=== PATIENT | female | born 1990 | race Hispanic/Latino ===

== ENCOUNTER 2017-11-27 22:04 | Emergency (ER) | payer OTHER, SELFPAY ==
--- NOTE | 2017-11-27 22:33 | EDPHYS ---
Physician Documentation [facility] Name: Jennifer Méndez Age: 27 yrs Sex: Female : 1990 Arrival Date: 11/27/2017 Time: 22:09 Bed 12 Private MD: ED Physician Josiah Fonseca HPI: 11/27 22:28 This 27 yrs old Female presents to ER via Ambulatory with complaints of Sore cp Throat. 22:28 The patient presents with sore throat. Onset: The symptoms/episode began/occurred 3 cp day(s) ago. Associated signs and symptoms: Pertinent negatives cough, dysphagia, fever, flu-like symptoms. PR INTERN: 22:19 LMP N/A - control method ed1 Historical: - Allergies: 22:19 PENICILLINS; ed1 22:19 [place]; ed1 - Home Meds: 22:19 Control [Active]; ed1 - PMHx: 22:19 None; ed1 - PSHx: 22:19 ; ed1 - Immunization history:: Adult Immunizations up to date, Flu vaccine is not up to date. - Social history:: Smoking status: Patient uses tobacco products, smokes one-half pack cigarettes per day. ROS: 22:29 Eyes: Negative for injury, pain, redness, and discharge. cp 22:29 Constitutional: Negative for body aches, chills, fever, poor PO intake. 22:29 ENT: Positive for sore throat, Negative for drainage from ear(s), ear pain, difficulty swallowing, difficulty handling secretions. 22:29 Cardiovascular: Negative for chest pain. 22:29 Respiratory: Negative for cough, shortness of breath, wheezing. 22:29 Abdomen/GI: Negative for abdominal pain, vomiting, diarrhea, constipation. 22:29 Skin: Negative for cellulitis, rash. 22:29 Neuro: Negative for altered mental status, headache, weakness. 22:29 All other systems are negative. Exam: 22:30 Head/Face: Normocephalic, atraumatic. cp 22:30 Constitutional: The patient appears in no acute distress, alert, awake, non-toxic, well developed, well nourished. 22:30 Eyes: Periorbital structures: appear normal, Conjunctiva: normal, no exudate, no injection, Sclera: no appreciated abnormality, Lids and lashes: appear normal, bilaterally. 22:30 ENT: External ear(s): are unremarkable, Ear canal(s): are normal, clear, TM's: dullness, bilaterally, Nose: is normal, Mouth: Lips: moist, Oral mucosa: moist, Posterior pharynx: Airway: no evidence of obstruction, patent, Tonsils: bilaterally enlarged, with erythema, with exudate, Uvula: midline, erythema, that is moderate, Voice: is normal. 22:30 Neck: ROM/movement: is normal, is supple, without pain, no range of motions limitations, no meningismus, no nuchal rigidity, Lymph nodes: lymphadenopathy is appreciated, anterior cervical nodes. 22:30 Chest/axilla: Inspection: normal, Palpation: is normal, no crepitus, no tenderness. 22:30 Cardiovascular: Rate: normal, Rhythm: regular. 22:30 Respiratory: the patient does not display signs of respiratory distress, Respirations: normal, no use of accessory muscles, no retractions, no splinting, no tachypnea, labored breathing, is not present, Breath sounds: are clear throughout, no decreased breath sounds, no stridor, no wheezing. 22:30 Abdomen/GI: Exam negative for discomfort, distension, guarding, Inspection: abdomen appears normal. 22:30 Skin: cellulitis, is not appreciated, no rash present. Vital Signs: 22:19 BP 112 / 72; Pulse 62; Resp 18; Temp 98.1(O); Pulse Ox 99% on R/A; Weight 68.04 kg (R); ed1 Height 4 ft. 11 in. (149.86 cm) (R); Pain 0/10; 22:45 BP 114 / 76; Pulse 83; Resp 16; Temp 98.0(O); Pulse Ox 100% on R/A; Pain 0/10; ed1 22:19 Body Mass Index 30.30 (68.04 kg, 149.86 cm) ed1 22:19 Reports pain when swallowing ed1 MDM: 22:22 Patient medically screened. cp 22:32 Data reviewed: vital signs, nurses notes, and as a result, I will discharge patient. cp 22:32 Differential diagnosis: epiglottitis, group A strep tonsillitis, tomas's angina, cp peritonsillar abscess retropharyngeal abcess tonsillitis, uvulitis. Counseling: I had a detailed discussion with the patient and/or guardian regarding: the historical points, exam findings, and any diagnostic results supporting the discharge/admit diagnosis, to return to the emergency department if symptoms worsen or persist or if there are any questions or concerns that arise at home. Administered Medications: No medications were administered Disposition: 11/28 04:47 Co-signature as Attending Physician, Josiah Fonseca MD. rn Disposition: 11/27/17 22:33 Discharged to Home. Impression: Acute tonsillitis. - Condition is Stable. - Discharge Instructions: Tonsillitis. - Prescriptions for Biaxin 500 mg Oral Tablet - take 1 tablet by ORAL route every 12 hours for 10 days; 20 tablet. Ibuprofen 800 mg Oral Tablet - take 1 tablet by ORAL route every 8 hours As needed take with food; 30 tablet. - Medication Reconciliation Form, Thank You Letter, Antibiotic Education, Prescription Opioid Use form. - Follow up: Private Physician; When: 2 - 3 days; Reason: Recheck today's complaints. - Problem is new. - Symptoms are unchanged. Signatures: Josiah Fonseca MD MD rn Luanne Vargas, PHOTOGRAPHIC PROCESSOR PHOTOGRAPHIC PROCESSOR ed1 Rosalio Todd PA PA cp Corrections: (The following items were deleted from the chart) 11/27 22:46 22:33 11/27/2017 22:33 Discharged to Home. Impression: Acute tonsillitis. Condition is ed1 Stable. Forms are Medication Reconciliation Form, Thank You Letter, Antibiotic Education, Prescription Opioid Use. Follow up: Private Physician; When: 2 - 3 days; Reason: Recheck today's complaints. Problem is new. Symptoms are unchanged. cp
--- NOTE | 2017-11-27 22:33 | ER ---
Nurse's Notes [facility] Name: Jennifer Méndez Age: 27 yrs Sex: Female : 1990 Arrival Date: 11/27/2017 Time: 22:09 Bed 12 Private MD: Diagnosis: Acute tonsillitis Presentation: 11/27 22:17 Presenting complaint: Patient states: I was seen at [facility] today and they swabbed me ed1 for strep and it came back negative. They said I wasn't sick and sent me home. I have been taking Tylenol and Mucinex-D. Transition of care: patient was not received from another setting of care. Onset of symptoms was November 25, 2017. Initial Sepsis Screen: Does the patient meet any 2 criteria? No. Patient's initial sepsis screen is negative. Does the patient have a suspected source of infection? No. Patient's initial sepsis screen is negative. Care prior to arrival: None. 22:17 Method Of Arrival: Ambulatory ed1 22:23 Acuity: MEL 4 bb Triage Assessment: 22:19 General: Appears uncomfortable, Behavior is calm, cooperative. Pain: Denies pain. EENT: ed1 Throat is reddened has enlarged tonsils bilaterally Reports pain when swallowing. OPHTHALMIC NURSE: 22:19 LMP N/A - control method ed1 Historical: - Allergies: 22:19 PENICILLINS; ed1 22:19 [place]; ed1 - Home Meds: 22:19 Control [Active]; ed1 - PMHx: 22:19 None; ed1 - PSHx: 22:19 ; ed1 - Immunization history:: Adult Immunizations up to date, Flu vaccine is not up to date. - Social history:: Smoking status: Patient uses tobacco products, smokes one-half pack cigarettes per day. Screenin:21 Abuse screen: Denies threats or abuse. Denies injuries from another. Nutritional ed1 screening: No deficits noted. Tuberculosis screening: No symptoms or risk factors identified. Fall Risk None identified. Assessment: 22:21 General: Appears uncomfortable, Behavior is calm, cooperative. Pain: Denies pain. ed1 Neuro: Level of Consciousness is awake, alert, obeys commands, Oriented to person, place, time, situation. Cardiovascular: Denies chest pain, Heart tones S1 S2 present. Respiratory: Airway is patent Respiratory effort is even, unlabored, Respiratory pattern is regular, symmetrical, Breath sounds are clear bilaterally. GI: No signs and/or symptoms were reported involving the gastrointestinal system. : No signs and/or symptoms were reported regarding the genitourinary system. EENT: Throat is reddened has enlarged tonsils bilaterally Reports pain when swallowing. Derm: Skin is pink, warm \T\ dry. Musculoskeletal: Circulation, motion, and sensation intact. Capillary refill < 3 seconds, in bilateral fingers. 22:23 Reassessment: I agree with above assessment by Hilda Vargas LVN. bb 22:45 Reassessment: Patient appears in no apparent distress at this time. No changes from ed1 previously documented assessment. Patient and/or family updated on plan of care and expected duration. Pain level reassessed. Patient is alert, oriented x 3, equal unlabored respirations, skin warm/dry/pink. Vital Signs: 22:19 BP 112 / 72; Pulse 62; Resp 18; Temp 98.1(O); Pulse Ox 99% on R/A; Weight 68.04 kg (R); ed1 Height 4 ft. 11 in. (149.86 cm) (R); Pain 0/10; 22:45 BP 114 / 76; Pulse 83; Resp 16; Temp 98.0(O); Pulse Ox 100% on R/A; Pain 0/10; ed1 22:19 Body Mass Index 30.30 (68.04 kg, 149.86 cm) ed1 22:19 Reports pain when swallowing ed1 ED Course: 22:09 Patient arrived in ED. al2 22:17 Luanne Vargas LVN is Primary Nurse. ed1 22:19 Arm band placed on left wrist. ed1 22:21 Call light in reach. Adult w/ patient. ed1 22:22 Rosalio Todd PA is PHCP. cp 22:22 Josiah Fonseca MD is Attending Physician. cp 22:23 Triage completed. bb 22:45 No provider procedures requiring assistance completed. Patient did not have IV access ed1 during this emergency room visit. Administered Medications: No medications were administered Outcome: 22:33 Discharge ordered by MD. cp 22:45 Discharged to home ambulatory, with family. ed1 22:45 Condition: good 22:45 Discharge instructions given to patient, Instructed on discharge instructions, follow up and referral plans. medication usage, Demonstrated understanding of instructions, follow-up care, medications, Prescriptions given X 2. 22:46 Patient left the ED. ed1 Signatures: Adri Mancilla RN RN Luanne Barragan, METAL FORGER'S ASSISTANT METAL FORGER'S ASSISTANT ed1 Rosalio Todd PA PA cp Love, Frannie vick2
[2017-11-27 22:51] VITALS: BP 114/76; TEMP 98; O2SAT 100
== END 2017-11-27 22:46 | disposition home or self-care (01) ==
LOC: ER 22:04
DX: J03.90 Acute tonsillitis, unspecified (principal); Z88.0 Allergy status to penicillin; Z88.6 Allergy status to analgesic agent; F17.210 Nicotine dependence, cigarettes, uncomplicated
CPT/HCPCS: 99282